=== PATIENT | female | born 1990 | race American Indian/Alaskan Native ===

== ENCOUNTER 2024-03-06 11:20 | Emergency (ER) | payer OTHER ==
[2024-03-06 12:12] LABS: BILIRUBIN,URINE NEGATIVE (NEGATIVE); GLUCOSE,URINE NORMAL (NORMAL); KETONES,URINE NEGATIVE (NEGATIVE); LEUKOCYTE ESTERASE,URINE MODERATE (NEGATIVE); NITRITE,URINE NEGATIVE (NEGATIVE); OCCULT BLOOD,URINE NEGATIVE (NEGATIVE); PROTEIN,URINE NEGATIVE (NEGATIVE); UROBILINOGEN,URINE NORMAL (NEGATIVE)
[2024-03-06 12:13] LABS: BLOOD UREA NITROGEN,BUN 12 mg/dL (7-18); CALCIUM 8.5 mg/dL (8.6-10.2); CARBON DIOXIDE,CO2 25 mmol/L (21-32); CHLORIDE,CL 103 mmol/L (100-110); CREATININE 0.8 mg/dL (0.55-1.02); EST CRCL DRUG DOSING (CG) 87.99 mL/min; ESTIMATED GFR 101 mL/min (>60); GLUCOSE RANDOM 84 mg/dL (80-116); POTASSIUM,K 4.1 mmol/L (3.5-5.3); SODIUM,NA 138 mmol/L (135-145)
[2024-03-06 12:15] LABS: APPEARANCE,URINE CLEAR (CLEAR); COLOR,URINE YELLOW (YELLOW); RBC,URINE 0-5 (0-5); SQUAMOUS EPITHELIAL CELLS,UR FEW (NS,R,O)
[2024-03-06 12:16] LABS: BACTERIA,URINE FEW (NS); MUCUS,URINE OCCASIONAL (NS)
[2024-03-06] MEDS: Ketorolac 30 MG/ML SDV IM ONE (12:17)
[2024-03-06] MEDS: Ondansetron 4 MG Tab.DIS PO ONE (12:17)
[2024-03-06 12:21] LABS: BASOPHILS ABSOLUTE AUTO 0.1 x10-3/uL (0.0-0.1); BASOPHILS PERCENT AUTO 0.7 % (0.2-1.5); EOSINOPHILS ABSOLUTE AUTO 0.1 x10-3/uL (0.0-0.8); EOSINOPHILS PERCENT AUTO 1.4 % (0.6-8.1); HEMATOCRIT 35.1 % (34.2-48.2); HEMOGLOBIN 10.8 g/dL (11.4-15.5); LYMPHOCYTES ABSOLUTE AUTO 2.2 x10-3/uL (1.0-4.4); LYMPHOCYTES PERCENT AUTO 22.2 % (18.4-52.1); MEAN CORPUSCULAR HEMOGLOBIN 19.6 pg (23.9-33.9); MEAN CORPUSCULAR HGB CONC 30.6 g/dL (31.9-34.8); MEAN PLATELET VOLUME 7.1 fL (7.1-12.4); MONOCYTES ABSOLUTE AUTO 0.9 x10-3/uL (0.3-1.0); MONOCYTES PERCENT AUTO 8.5 % (4.4-15.7); NEUTROPHILS ABSOLUTE AUTO 6.7 x10-3/uL (1.5-6.3); NEUTROPHILS PERCENT AUTO 67.2 % (30.8-76.2); PLATELET COUNT,PLT 445 x10(3)uL (151-488)
[2024-03-06 12:30] LABS: RED BLOOD CELL COUNT 5.49 x10(6)uL (3.60-5.20)
== END 2024-03-06 13:10 | disposition home or self-care (01) ==
LOC: FB.ED 11:20
DX: N39.0 Urinary tract infection, site not specified (principal); I10 Essential (primary) hypertension; Z79.899 Other long term (current) drug therapy; Z88.6 Allergy status to analgesic agent; Z88.8 Allergy status to other drugs, medicaments and biological substances
CPT/HCPCS: 36415; 80048; 81001; 85025; 87086; 96372; 99283; J1885; Q0162

== ENCOUNTER 2024-10-04 02:21 | Emergency (ER) | payer OTHER ==
[2024-10-04] MEDS: Labetalol 20 MG/4 ML Syringe IVPUSH ONE (03:27)
[2024-10-04 03:37] LABS: BASOPHILS ABSOLUTE AUTO 0.1 x10-3/uL (0.0-0.1); BASOPHILS PERCENT AUTO 0.7 % (0.2-1.5); EOSINOPHILS ABSOLUTE AUTO 0.2 x10-3/uL (0.0-0.8); EOSINOPHILS PERCENT AUTO 1.6 % (0.6-8.1); HEMATOCRIT 33.6 % (34.2-48.2); HEMOGLOBIN 10.3 g/dL (11.4-15.5); LYMPHOCYTES PERCENT AUTO 23.6 % (18.4-52.1); MEAN CORPUSCULAR HEMOGLOBIN 19.9 pg (23.9-33.9); MEAN CORPUSCULAR HGB CONC 30.7 g/dL (31.9-34.8); MEAN CORPUSCULAR VOLUME 64.9 fL (76.7-100.5); MONOCYTES ABSOLUTE AUTO 0.8 x10-3/uL (0.3-1.0); NEUTROPHILS ABSOLUTE AUTO 8.7 x10-3/uL (1.5-6.3); NEUTROPHILS PERCENT AUTO 68.1 % (30.8-76.2); PLATELET COUNT,PLT 457 x10(3)uL (151-488); RED CELL DISTRIBUTION WIDTH 19.7 % (12.3-16.5); WHITE BLOOD CELL COUNT,WBC 12.7 x10-3/uL (3.0-10.3)
[2024-10-04 03:44] LABS: BLOOD UREA NITROGEN,BUN 12 mg/dL (7-18); BUN/CREATININE RATIO 17.1 (9-20); CALCIUM 8.4 mg/dL (8.6-10.2); CARBON DIOXIDE,CO2 24 mmol/L (21-32); CHLORIDE,CL 106 mmol/L (100-110); CREATININE 0.7 mg/dL (0.55-1.02); ESTIMATED GFR 119 mL/min (>60); GLUCOSE RANDOM 122 mg/dL (80-116); POTASSIUM,K 3.5 mmol/L (3.5-5.3); SODIUM,NA 142 mmol/L (135-145)
[2024-10-04 03:50] LABS: RED BLOOD CELL COUNT 5.17 x10(6)uL (3.60-5.20)
[2024-10-04 03:51] LABS: A/G RATIO 0.7; ALANINE AMINOTRANSFERASE,ALT 30 U/L (12-36); ALBUMIN 3.2 g/dL (3.5-5.2); ALKALINE PHOSPHATASE 124 IU/L (56-112); ASPARTATE AMNIOTRANSFERASE,AST 19 IU/L (5-25); BILIRUBIN TOTAL 0.2 mg/dL (0.1-1.3); PROTEIN TOTAL,TP 7.5 g/dL (6.0-8.0)
[2024-10-04] MEDS: amLODIPine 5 MG Tab PO ONE (04:05)
[2024-10-04] MEDS: Ketorolac 30 MG/ML SDV IVPUSH ONE (05:08)
[2024-10-04] MEDS: hydrALAZINE 20 MG/ML SDV IVPUSH ONE (05:08)
== END 2024-10-04 05:51 | disposition home or self-care (01) ==
LOC: FB.ED 02:21
DX: I16.9 Hypertensive crisis, unspecified (principal); I10 Essential (primary) hypertension; Z79.899 Other long term (current) drug therapy; Z79.82 Long term (current) use of aspirin; Z91.018 Allergy to other foods; Z88.8 Allergy status to other drugs, medicaments and biological substances
CPT/HCPCS: 36415; 70450; 80053; 83880; 84484; 85025; 93005; 96374; 96375; 99284; A9270; J0360; J1885; J1920

== ENCOUNTER 2025-02-17 15:13 | Emergency (ER) | payer OTHER ==
[2025-02-17] MEDS: Morphine 10 MG/ML SDV IVPUSH ONE ×2 (15:46→21:47)
[2025-02-17] MEDS: Ondansetron 4 MG/2 ML SDV IVPUSH ONE ×2 (15:48→21:47)
[2025-02-17 15:51] LABS: BASOPHILS ABSOLUTE AUTO 0.0 x10-3/uL (0.0-0.1); BASOPHILS PERCENT AUTO 0.3 % (0.2-1.5); EOSINOPHILS ABSOLUTE AUTO 0.0 x10-3/uL (0.0-0.8); EOSINOPHILS PERCENT AUTO 0.2 % (0.6-8.1); LYMPHOCYTES ABSOLUTE AUTO 1.5 x10-3/uL (1.0-4.4); LYMPHOCYTES PERCENT AUTO 12.6 % (18.4-52.1); MEAN PLATELET VOLUME 7.1 fL (7.1-12.4); MONOCYTES ABSOLUTE AUTO 0.7 x10-3/uL (0.3-1.0); MONOCYTES PERCENT AUTO 5.7 % (4.4-15.7); NEUTROPHILS ABSOLUTE AUTO 9.7 x10-3/uL (1.5-6.3); NEUTROPHILS PERCENT AUTO 81.2 % (30.8-76.2); PLATELET COUNT,PLT 475 x10(3)uL (151-488); RED BLOOD CELL COUNT 5.39 x10(6)uL (3.60-5.20); RED CELL DISTRIBUTION WIDTH 20.4 % (12.3-16.5); WHITE BLOOD CELL COUNT,WBC 12.0 x10-3/uL (3.0-10.3)
[2025-02-17 15:59] LABS: BLOOD UREA NITROGEN,BUN 16 mg/dL (7-18); CARBON DIOXIDE,CO2 28 mmol/L (21-32); CHLORIDE,CL 100 mmol/L (100-110); CREATININE 0.9 mg/dL (0.55-1.02); ESTIMATED GFR 87 mL/min (>60); GLUCOSE RANDOM 106 mg/dL (80-116); POTASSIUM,K 3.5 mmol/L (3.5-5.3); SODIUM,NA 138 mmol/L (135-145)
[2025-02-17] MEDS: LORazepam 2 MG/ML SDV IVPUSH ONE (16:34)
[2025-02-17] MEDS: hydrALAZINE 20 MG/ML SDV IVPUSH ONE ×2 (18:22→18:37)
== END 2025-02-17 22:30 | disposition home or self-care (01) ==
LOC: FB.ED 15:13
DX: I16.9 Hypertensive crisis, unspecified (principal); F41.9 Anxiety disorder, unspecified; I10 Essential (primary) hypertension; Z79.899 Other long term (current) drug therapy; Z88.8 Allergy status to other drugs, medicaments and biological substances; Z88.6 Allergy status to analgesic agent
CPT/HCPCS: 36415; 70450; 71045; 80048; 84484; 85025; 85379; 93005; 96374; 96375; 96376; 99285-25; A9270-GY; J0360; J1920; J2060; J2272; J2405

== ENCOUNTER 2025-02-24 11:34 | Emergency (ER) | payer SELFPAY | END 2025-02-24 12:30 | disposition home or self-care (01) | LOC: FB.ED 11:34 | DX: R07.89 Other chest pain (principal); I10 Essential (primary) hypertension; Z88.6 Allergy status to analgesic agent; Z88.8 Allergy status to other drugs, medicaments and biological substances; Z79.899 Other long term (current) drug therapy | CPT/HCPCS: 36415; 84484; 99284 ==